=== PATIENT | female | born 1960 | race Caucasian/White ===

== ENCOUNTER → 2019-01-19 | Outpatient (CLI) | payer OTHER ==
[~2019-01-19] VITALS: Ht 167.6 cm; Wt 78.9 kg
[~2019-01-19] MED LIST: ESTRADIOL1 EA10 TRANSDERM; IBUPROFEN 800800 M1 PO; NEURONTIN600 MG PO; OMEGA-31000 M1 PO; VITAMIN B-12500 MCG PO; VITAMIN D5000 UNIT PO
--- NOTE | ~2019-01-19 | HPC ---
[facility] [address] [place] [address] PAIN MANAGEMENT CONSULTATION Name: RADHA LANGSTON Room #: REG SAIDA Angelo#: [id number] Admission: 01/19/19 ������������������ Attend Phys: Ondina White MD Discharge: ������������������ Date of : 62 Report #: [id number] THIS REPORT FOR: //name// CC: JACQUI physician/PCP Erika White DATE OF SERVICE: 01/19/2019 CHIEF COMPLAINT: Pain in the low back and is radiating down the left leg. HISTORY OF PRESENT ILLNESS: The patient is a 58-year-old female who has been referred to the pain clinic for evaluation of left leg pain. She has been experiencing pain in her low back, which has been radiating down into her left leg for a number of weeks. Pain involves the lower portion of her back, radiates down the posterior portion of her back, leg and into her foot. She describes the pain as shooting, aching, throbbing, stabbing. Rates it as a 4/10 today. It can rise to the level of 8. Notes that sitting, standing, walking, lifting to be problematic. Pain somewhat improved when she is reclining. She has not had back surgery. Denies any new trauma. No significant changes to bowel or bladder function. She has been directed to the pain clinic for evaluation and possibility of an epidural injection. 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 ALLERGIES: PENICILLIN. CURRENT MEDICATIONS: Estradiol patch, vitamin B12 500 mcg daily, 2 tablets, vitamin D3 5000 units, omega 3 1000 mg, Neurontin 600 mg t.i.d., ibuprofen 800 mg t.i.d. PAST MEDICAL HISTORY: Hyperlipidemia, hay fever, arthritis. PAST SURGICAL HISTORY: Hysterectomy in 1999, right big toe surgery. 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 REVIEW OF SYSTEMS: Generally good health, numbness and tingling sensation in the left lower leg. LABORATORY DATA: MRI of the lumbar spine dated 12/24/2018 reveals: 1. At L3-L4, there is minimal posterior disk bulge. No significant spinal canal or neural foraminal stenosis. 2. L4-L5, minimal posterior disk bulge. Mild bilateral facet arthrosis. There is a tiny 2 x 3 mm synovial cyst projecting medially from the left facet joint without mass effect upon the descending nerve roots. This is seen on T2 slice. No significant central spinal canal or neural foraminal stenosis. [address] [address] PAIN MANAGEMENT CONSULTATION Name: RADHA LANGSTON Room #: REG [facility]#: [id number] Admission: 01/19/19 ������������������ Attend Phys: Ondina White MD Discharge: ������������������ Date of : 62 Report #: [id number] 3. L5-S1, there is a small broad-based posterior disk bulge with a superimposed broad-based left foraminal disk protrusions banding in approximately 2 cm segment of the foramen disk with impingement upon the exiting left L5 nerve root and severe left neural foraminal stenosis seen at slice 27. This correlates for left radicular symptoms. No significant overall central spinal canal or right-sided neural foraminal stenosis. PAIN CLINIC ASSESSMENT AND PQRS: 1. History of osteoarthritis. The patient is not being treated for osteoarthritis. 2. Rheumatoid arthritis. The patient is not being treated for rheumatoid arthritis. 3. Height 5 feet 6 inches, weight 174 pounds, BMI is 28.1. 4. Vital Signs: Blood pressure 151/97, pulse 73, respiratory rate 18, room air saturation is 100%. 5. Pain intensity 12/08. 6. Fall history: The patient has not fallen in the last 3 months. 7. Blood thinner. The patient is not on a blood thinning medication. 8. Hypertension. The patient is not being treated for hypertension. 9. Opioids greater than 6 weeks. The patient is not on an opioid regimen. 10. Risk assessment tool, low for opioid use. 11. Functional assessment tool 56/70. 12. Recreational drug use. The patient denies use of recreational drugs. 13. Tobacco: The patient denies smoking. 14. Alcohol. The patient drinks alcoholic beverages on occasion. PHYSICAL EXAMINATION: GENERAL: The patient is a well-developed, well-nourished white female. Appears her stated age. She is alert and oriented x 3. Her affect is appropriate. Speech is fluent. HEENT: Normocephalic, atraumatic. Extraocular eye muscles intact. Sclerae nonicteric. Mucous membranes are moist. NECK: Without adenopathy or JVD. HEART: Regular rate. S1, S2. ABDOMEN: Nontender. Bowel sounds present. EXTREMITIES: Upper extremity muscle strength is judged to be 5/5 for the major muscle groups in the upper extremity. Deep tendon reflexes +2 for the biceps. MUSCULOSKELETAL: The patient without significant scoliosis, kyphosis or lordosis. The patient has pain and discomfort in the lower portion of her back. Complains of pain that is radiating down into the left L5-S1 dermatomal distribution with pain in the leg, calf and down into the foot. Straight leg raise is positive. Forward bending to about 45 degrees cause some increased pain in the low back area down into her left leg. Left and right lateral bending were not problematic. Anterior and posterior spring tests were negative. [address] [address] PAIN MANAGEMENT CONSULTATION Name: RADHA LANGSTON Room #: REG [facility]#: [id number] Admission: 01/19/19 ������������������ Attend Phys: Ondina White MD Discharge: ������������������ Date of : 62 Report #: [id number] IMPRESSION: 1. Lumbar radiculopathy with L5-S1 dermatomal distribution. 2. Hyperlipidemia. 3. Hay fever. 4. Arthritis. RECOMMENDATIONS: We discussed treatment options with the patient. A model was used to indicate the area of probable pathology. The patient's MRI was reviewed with her line by line. A video showing information regarding sciatic nerve pain was reviewed. The patient feels that this is what is going on. Feels confident that that she would like to proceed at this juncture with an epidural steroid injection with the hope of improving her pain. We will contact the patient's insurer. We they give us the confirmation, we would then proceed with an epidural steroid injection in the left low back area near the L5-S1 nerve root. The patient has been given options to ask questions and have them answered. We would like to thank you for letting us participate in her care. We hope she continues to improve. ��������������������������������������������� ���������������������������������������� By: ��������������������������������������������� 0828 0926 Ondina White MD /JOANNA
[2019-01-19 14:31] VITALS: BP 151/97
--- NOTE | 2019-01-19 14:58 | NUR ---
Pain Clinic Assessment: 1. History of Osteoarthritis: Not Applicable History of Rheumatoid Arthritis: Not Applicable 2. Height: 5 ft. 6 in. 167.6 cm. Weight: 174.0 lb. oz. 78.926 kg. Patient's BMI: 28.1 3. Vital Signs: BP: 151/97 Pulse: 73 Resp: 18 Temp: 02 Sat: 100 ECG Mon: 4. Pain Intensity: 4 5. Fall Risk: Dizziness: N Needs help standing or walking: N Fallen in the last 3 months: N Fall risk comments: 6. Patient on Blood Thinner: None 7. History of Hypertension: N 8. Opioid Therapy greater than 6 weeks: N Opiate Contract Signed: 9. Risk Assessment Tool Provided: 10. Functional Assessment Tool: 11. Recreational Drug Use: Never Drug Type: Tobacco Use: Never Smoker Tobacco Type: Amount or Packs/day: How Many Years: Alcohol Use: Yes Frequency: Daily Quant: 2
== END ==
LOC: PAIN 07:09
DX: M54.16 Radiculopathy, lumbar region (principal); E78.5 Hyperlipidemia, unspecified; M19.90 Unspecified osteoarthritis, unspecified site; J30.1 Allergic rhinitis due to pollen; Z88.0 Allergy status to penicillin; Z79.899 Other long term (current) drug therapy; Z90.710 Acquired absence of both cervix and uterus; Z79.891 Long term (current) use of opiate analgesic

== ENCOUNTER → 2019-01-21 | Outpatient (CLI) | payer OTHER ==
[~2019-01-21] VITALS: Ht 167.6 cm; Wt 78.9 kg
[2019-01-21 09:14] VITALS: BP 132/70
--- NOTE | 2019-01-21 09:15 | NUR ---
Pain Clinic Assessment: 1. History of Osteoarthritis: Not Applicable History of Rheumatoid Arthritis: Not Applicable 2. Height: 5 ft. 6 in. 167.6 cm. Weight: 174.0 lb. oz. 78.926 kg. Patient's BMI: 28.1 3. Vital Signs: BP: 132/70 Pulse: 67 Resp: 16 Temp: 02 Sat: 97 ECG Mon: 4. Pain Intensity: 8 5. Fall Risk: Dizziness: N Needs help standing or walking: N Fallen in the last 3 months: N Fall risk comments: 6. Patient on Blood Thinner: None 7. History of Hypertension: N 8. Opioid Therapy greater than 6 weeks: N Opiate Contract Signed: 9. Risk Assessment Tool Provided: 10. Functional Assessment Tool: 11. Recreational Drug Use: Never Drug Type: Tobacco Use: Never Smoker Tobacco Type: Amount or Packs/day: How Many Years: Alcohol Use: Yes Frequency: Quant:
--- NOTE | 2019-02-02 08:16 | HPC ---
[facility] [address] [place] [address] PAIN MANAGEMENT CONSULTATION Name: RADHA LANGSTON Room #: REG SAIDA Stephens#: [id number] Admission: 01/21/19 ������������������ Attend Phys: Ondina White MD Discharge: ������������������ Date of : 62 Report #: [id number] THIS REPORT FOR: //name// CC: PAT White DATE OF SERVICE: 01/21/2019 CHIEF COMPLAINT: Low back pain down into the left leg. HISTORY OF PRESENT ILLNESS: The patient is a 58-year-old female who has been referred to the pain clinic for evaluation. The patient has been experiencing pain in her low back area with pain that has radiated down into her left leg, ankle, and foot. Pain has been problematic since 12/31/2018. It involves her low back radiating down to the leg, ankle, and foot. Describes arrhythmic discomfort of shooting, aching, throbbing and stabbing pain. Rates it as an 8/10. Pain is exacerbated with sitting, standing, walking, lifting and most activities. Pain improves somewhat when she reclines. The patient has been given a script for gabapentin. At this juncture, she does not feel that it has been much help. She has tried physical therapy. ALLERGIES: PENICILLIN. CURRENT MEDICATIONS: Estradiol patch, vitamin B12 500 mcg daily, 2 tablets, vitamin D3 5000 units, omega 3 1000 mg, Neurontin 600 mg t.i.d., and ibuprofen 800 mg t.i.d. PAIN CLINIC ASSESSMENT AND PQRS: 1. History of osteoarthritis. The patient is not being treated for osteoarthritis. The patient is not being treated for rheumatoid arthritis. 2. The patient's height was 5 feet 6 inches, weight 174 pounds, BMI is 28.1. 3. VITAL SIGNS: Blood pressure 151/97, pulse 73, respiratory rate 18, room air saturation is 100%. 4. Pain intensity 12/08. 5. Fall risk. The patient has not fallen in the last 3 months. 6. Blood thinner. The patient is not on a blood thinning medication. 7. Hypertension. The patient is not being treated for hypertension. 8. Opioids greater than 6 weeks. The patient is not being treated for half-way with opioids. 9. Risk assessment tool, low for her opioid use. 10. Functional assessment tool 56/. 11. Recreational drug use. The patient denies use of recreational drugs. 12. Tobacco: The patient has never smoked. 13. Alcohol: The patient drinks alcoholic beverages on occasion. PHYSICAL EXAMINATION: [facility] [address] [place] [address] PAIN MANAGEMENT CONSULTATION Name: RADHA LANGSTON Room #: REG [facility]#: [id number] Admission: 01/21/19 ������������������ Attend Phys: Ondina White MD Discharge: ������������������ Date of : 62 Report #: [id number] GENERAL: The patient is a well-developed, well-nourished white female. Appears her stated age. She is alert and oriented x 3. Her affect is appropriate. Speech is fluent. The patient's brother has accompanied her. HEENT: Normocephalic, atraumatic. Extraocular muscles intact. Sclerae nonicteric. Mucous membranes are moist. NECK: Without adenopathy or JVD. HEART: Rate is regular rate. S1, S2. LUNGS: Clear to auscultation. ABDOMEN: Nontender. EXTREMITIES: Upper extremity muscle strength is judged to be 5/5 for the major muscle groups in the upper extremity. Deep tendon reflexes are +1 at the biceps and triceps bilaterally. The patient without significant scoliosis, kyphosis, or lordosis. The patient has pain and discomfort while forward bending to 90 degrees. Lumbar extension caused some increased discomfort. The patient has pain that is radiating down into the left leg involving the ankle and foot. Anterior and posterior spring tests are negative. Straight leg raise is positive. The patient is able to briefly stand on her toes and walk back on her heels. Left and right lateral rotation were not very problematic. Left and right lateral bending cause some increased discomfort in the left low back area with pain radiating down into her leg. IMPRESSION: Sciatica L5-S1 on the left with pain radiating down the posterior portion of the leg, calf and into the foot. RECOMMENDATIONS: We discussed treatment options with the patient. Risks and benefits of an epidural steroid injection were discussed. The patient has tried a number of activities. She has undergone physical therapy stretches at home. She has taken [id number] nonsteroidal anti-inflammatory medication. Her pain continues to be problematic. She has returned today for an epidural steroid injection to help with the pain. Risks and benefits of the pain were discussed. A model had been used to discuss and described the area of problem. 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 She elects to proceed. PROCEDURE NOTE: The patient was taken to the procedure area. She was then assisted in getting on the examination table. Her back was sterilely prepped with a Betadine solution. Fluoroscopy using anterior, posterior as well as lateral viewing were implemented. A 17-gauge Tuohy with loss of resistance technique using a midline approach at the L4-L5 area directed in the left paramedian area was undertaken. There was no CSF, heme, or paresthesia. The area had been numbed with local anesthetic. A 17-gauge Tuohy was then placed. Aspiration was negative. A total of 80 mg Depo-Medrol, 40 mg triamcinolone and 2 mL of 0.25% bupivacaine was injected. The patient tolerated the procedure well. A total of 9 seconds fluoroscopy time was used. The patient will follow up in the near future. [address] [address] PAIN MANAGEMENT CONSULTATION Name: RADHA LANGSTON Room #: REG [facility] Angelo#: [id number] Admission: 01/21/19 ������������������ Attend Phys: Ondina White MD Discharge: ������������������ Date of : 62 Report #: [id number] We would like to thank you for letting us participate in her care. We hope she continues to improve. ��������������������������������������������� <ELECTRONICALLY SIGNED> ���������������������������������������� By: Ondina White MD ��������������������������������������������� 02/02/19 0816 1029 0050 Ondina White MD /nt
== END | disposition home or self-care (01) ==
LOC: PAIN 06:49
DX: M54.16 Radiculopathy, lumbar region (principal); M54.42 Lumbago with sciatica, left side; Z88.0 Allergy status to penicillin; Z79.899 Other long term (current) drug therapy; Z98.890 Other specified postprocedural states

== ENCOUNTER → 2019-02-23 | Outpatient (CLI) | payer OTHER ==
[~2019-02-23] VITALS: Ht 167.6 cm; Wt 75.6 kg
[2019-02-23 09:58] VITALS: BP 149/80
--- NOTE | 2019-02-23 10:10 | NUR ---
Pain Clinic Assessment: 1. History of Osteoarthritis: Not Applicable History of Rheumatoid Arthritis: Not Applicable 2. Height: 5 ft. 6 in. 167.6 cm. Weight: 166.6 lb. oz. 75.569 kg. Patient's BMI: 26.9 3. Vital Signs: BP: 149/80 Pulse: 78 Resp: 16 Temp: 02 Sat: 97 ECG Mon: 4. Pain Intensity: 8 AFTER WORK 3 NOW 5. Fall Risk: Dizziness: N Needs help standing or walking: N Fallen in the last 3 months: N Fall risk comments: 6. Patient on Blood Thinner: None 7. History of Hypertension: N 8. Opioid Therapy greater than 6 weeks: N Opiate Contract Signed: 9. Risk Assessment Tool Provided: 10. Functional Assessment Tool: 11. Recreational Drug Use: Never Drug Type: Tobacco Use: Never Smoker Tobacco Type: Amount or Packs/day: How Many Years: Alcohol Use: Yes Frequency: Quant:
--- NOTE | 2019-03-02 13:28 | HPC ---
[facility] [place] [address] PAIN MANAGEMENT CONSULTATION Name: RADHA LANGSTON Room #: REG SAIDA Stephens#: [id number] Admission: 02/23/19 ������������������ Attend Phys: Ondina White MD Discharge: ������������������ Date of : 62 Report #: [id number] THIS REPORT FOR: //name// CC: PAT White Physician staff DATE OF SERVICE: 02/23/2019 CHIEF COMPLAINT: The pain improved after the last injection, but I am still having pain that is going down into my left foot, buttocks, and leg with numbness and weakness. HISTORY: The patient is a 58-year-old female, who has been seen in the pain clinic because of lumbar radiculopathy. She noted pain and discomfort in early 12/2018. Pain started to radiate down into the posterior portion of her left leg with numbness. She has pain and discomfort into the level of her ankle and into her foot. She describes some pain, which was shooting, aching, throbbing, and stabbing. She rated as an 8/10. She notes that her pain was exacerbated with certain activities such as sitting, standing, walking, lifting, and with most activities of daily living. Pain improves when she recline. She has been started on gabapentin to help decrease her pain. She has undergone physical therapy. She has returned today after the last epidural steroid injection and states that she has noted a benefit from the injection, but that her pain continues to be problematic. She notes it is a 3 early in the morning. Radiates and elevates to the level of an 8/10. She is having difficulty working because of this pain intensity. Pain intensity is 8 after working, 3 during the early portion of the day. CURRENT MEDICATIONS: Estradiol patch, vitamin B12 500 mcg, 2 tablets daily; vitamin D3 5000 units, omega 3 1000 mg, Neurontin 600 mg t.i.d., and ibuprofen 800 mg t.i.d. ALLERGIES: PENICILLIN. PAIN CLINIC ASSESSMENT AND PQRS: 1. History of osteoarthritis. The patient is not being treated for osteoarthritis. She has not been treated for rheumatoid arthritis. 2. Pain intensity is 8 after work, 3 early in the day. 3. Fall risk. The patient has not fallen in the last 3 months. 4. Blood thinner. The patient is not on a blood thinning medication. 5. Hypertension. The patient has not been treated for hypertension. 6. Opioids greater than 6 weeks. The patient is not on an opioid medication. 7. Risk assessment tool, low for opioid use. 8. Functional assessment tool, 56/70. [place] [address] PAIN MANAGEMENT CONSULTATION Name: RADHA LANGSTON Room #: REG [facility].#: [id number] Admission: 02/23/19 ������������������ Attend Phys: Ondina White MD Discharge: ������������������ Date of : 62 Report #: [id number] 9. Recreational drug use. The patient denies. 10. Tobacco: The patient has never smoked. 11. Alcohol. The patient drinks alcoholic beverages on occasion. PHYSICAL EXAMINATION: GENERAL: The patient is a well-developed, well-nourished white female. She appears her stated age. She is alert and oriented x 3. Her affect is appropriate. Speech is fluent. Her brother is present. Height is 5 feet 6 inches, weight is 166 pounds, and BMI is 26.9. VITAL SIGNS: Blood pressure is 149/80, pulse is 78, respiratory rate is 16, and room air saturation is 97%. HEENT: Normocephalic, atraumatic. Extraocular eye muscles intact. Sclerae nonicteric. Mucous membranes are moist. NECK: Without adenopathy or JVD. HEART: Regular rate. S1, S2. LUNGS: Clear to auscultation. ABDOMEN: Nontender. Bowel sounds present. EXTREMITIES: Upper extremity muscle strength is judged to be 5/5 for the major muscle groups in the upper extremity. The patient was without significant scoliosis, kyphosis, or lordosis. The patient has pain and discomfort in the lower portion of her back. Positive straight leg raise on the left. She notes pain and discomfort radiating down to the buttocks with pain down into the ankle and into her foot. The patient notes sensory changes. There is perception of weakness in the left leg. IMPRESSION: Sciatica L5-S1 on the left, improved after the epidural steroid injection at the last visit. The patient has returned for another injection. She is still unable to work without significant pain and discomfort. She has sensory changes in the left calf, foot, buttocks, and ankle with numbness, tingling, and weakness. RECOMMENDATIONS: We have discussed treatment options with the patient. At this juncture, she will return to the pain clinic after she has been precertified by her insurance carrier. She will then undergo an epidural steroid injection in the L5-S1 area with hopes of improving the pain and discomfort, which she is experiencing down in the left lumbar radicular area. She is aware of the possible complication of the procedure, we reviewed them. She has gleaned benefit from the past procedure and would like to proceed with another injection to help improve her pain control. We would like to thank you for letting us to participate in her care. We hope she continues to improve. ��������������������������������������������� <ELECTRONICALLY SIGNED> ���������������������������������������� By: Ondina White MD ��������������������������������������������� 03/02/19 [id number] Ondina White MD /[facility]
== END ==
LOC: PAIN 06:51
DX: M54.42 Lumbago with sciatica, left side (principal); M19.90 Unspecified osteoarthritis, unspecified site; Z88.0 Allergy status to penicillin; Z79.899 Other long term (current) drug therapy; Z79.891 Long term (current) use of opiate analgesic